=== PATIENT | female | born 1970 | race Caucasian/White ===

== ENCOUNTER 2022-12-28 11:54 | Outpatient (CLI) | payer OTHER | END 2022-12-28 11:55 | disposition home or self-care (01) | LOC: SCSRAD 11:54 | PROVIDERS: ATTEND Nurse Practitioner Family | DX: S69.91XA Unspecified injury of right wrist, hand and finger(s), initial encounter (principal); S69.92XA Unspecified injury of left wrist, hand and finger(s), initial encounter ==